=== PATIENT | female | born 1970 | race Caucasian/White ===

== ENCOUNTER 2018-09-20 10:15 | Emergency (ER) | payer MEDICAID ==
[2018-09-20] MEDS: DEXAMETHASONE 10 MG/ML 1 ML INJ IM (11:11)
[2018-09-20] MEDS: DIPHENHYDRAMINE 25 MG CAP PO (11:11)
== END 2018-09-20 11:40 | disposition home or self-care (01) ==
LOC: FTE 10:15
DX: R22.0 Localized swelling, mass and lump, head (principal)
CPT/HCPCS: 96372; 99284-25; J1100

== ENCOUNTER 2018-10-09 22:37 | Emergency (ER) | payer SELFPAY, MEDICAID | END 2018-10-10 01:58 | disposition left against medical advice (07) | LOC: FTE 22:37 | DX: Z53.21 Procedure and treatment not carried out due to patient leaving prior to being seen by health care provider (principal) ==